=== PATIENT | female | born 1970 | race African-American/Black ===

== ENCOUNTER → 2019-10-20 08:04 | Outpatient (CLI) | payer OTHER, SELFPAY ==
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
== END ==
PROVIDERS: PCP Internal Medicine
DX: N63.21 Unspecified lump in the left breast, upper outer quadrant (principal)
CPT/HCPCS: 76642; 77062; 77066; G0279

== ENCOUNTER 2019-10-31 12:02 | Emergency (ER) | payer OTHER, SELFPAY ==
[2019-10-31 12:05] VITALS: BP 109/78; PULSE 86; RESP 14; TEMP 37.1; O2SAT 99
[2019-10-31 13:35] VITALS: BP 125/84; PULSE 83; RESP 16; TEMP 37.1; O2SAT 99
--- NOTE | 2019-10-31 14:28 | ED.BACK ---
HPI - Back Pain/Injury General Chief Complaint: Back Pain/Injury Stated Complaint: Back pain Time Seen by Provider: 10/31/19 13:16 Source: patient History of Present Illness HPI Narrative: 49 years old -Filipino female, morbidly obese complaining of lower back pain. Started 10 days ago. Patient denies any trauma, nausea, vomiting, fever, chills, urinary symptoms, or radiation of pain. Pain worse with certain movement, better with certain position. Patient had similar symptoms 5 years ago. MD elicited complaint: back pain Related Data Home Medications Medication Instructions Recorded Confirmed allopurinol 10/31/19 atenolol 10/31/19 ferrous sulfate 325 mg PO DAILY 10/31/19 levothyroxine 10/31/19 omeprazole 10/31/19 oxybutynin chloride mg PO 10/31/19 tramadol mg 10/31/19 triamterene-hydrochlorothiazid cap 10/31/19 warfarin 10/31/19 warfarin 10/31/19 Allergies Allergy/AdvReac Type Severity Reaction Status Date / Time NSAIDS (Non-Steroidal AdvReac Other Verified 10/31/19 13:46 Anti-Inflamma Review of Systems Review of Systems: Narrative: CONSTITUTIONAL: Denies fever, chills, or sweats. EYES: Denies visual changes, redness, or discharge. ENT: Denies rhinorrhea, congestion, sore throat, or otalgia. CARDIOVASCULAR: Denies chest pain, palpitations, or edema. RESPIRATORY: Denies cough or dyspnea. GASTROINTESTINAL: Denies abdominal pain, nausea, vomiting, or diarrhea. GENITOURINARY: Denies dysuria or hematuria. SKIN: Denies rash or itching. MUSCULOSKELETAL: Denies back pain, joint pain, or myalgia. NEUROLOGIC: Denies headache, numbness, or weakness. PSYCHIATRIC: Denies anxiety or depression. [facility], [facility] Family History Family History Mother Hypertension Family history of diabetes mellitus in first degree relative Family history of gallbladder disease Diabetes mellitus Sibling Hypertension Other Family history of cardiovascular disease Family history of malignant neoplasm Family history of malignant neoplasm of breast in first degree relative Social History Social History Smoking status: Never smoker Alcohol intake: never Gender identity (if verbalized by the patient): Female Exam Narrative: Exam Narrative: General appearance: Well-developed, well-nourished, patient sitting at the edge of the bed looks comfortable, morbidly obese Skin: Normal color Head: Normocephalic, nontraumatic Eyes: Clear conjunctiva ENT: Oropharynx normal, ears normal, nose normal Neck: Supple, nontender Chest and respiratory: Airway patent, no respiratory distress, no accessory muscle use Heart: Regular rate/rhythm Abdomen: Soft, nontender, no organomegaly, quiet bowel sounds Vascular: Normal peripheral pulses, normal capillary refill. Musculoskeletal: Slight limited range of motion across lumbar area, mild tenderness midline lumbar area, no bruises, no swelling or rash. Neurologic: Alert and oriented ?3, REBEAMER is normal as tested, no gross motor deficit Course Course Emergency Course: Improving Vital Signs Vital signs: Vital Signs Temperature 37.1 C 10/31/19 12:05 Pulse Rate 86 10/31/19 12:05 Respiratory Rate 14 10/31/19 12:05 Blood Pressure 109/78 10/31/19 12:05 Pulse Oximetry 99 10/31/19 12:05 Temperature 37.1 C 10/31/19 13:35 Pulse Rate 83 10/31/19 13:35 Respiratory Rate 16 10/31/19 13:35 Blood Pressure 125/84 10/31/19 13:35 Pulse Oximetry 99 10/31/19 13:35 MDM - Back Pain/Injury MDM Narrative Medical decision making narrative: Muscular strain/sprain is my concern. No
[2019-10-31] MEDS: ONDANSETRON HCL ODT 4 MG TABLET PO (15:56)
[2019-10-31] MEDS: diazePAM 5 MG TABLET PO (15:58)
--- NOTE | 2019-10-31 16:23 | PC.NURSE ---
Patient up to the bathroom to provide urine sample.
[2019-10-31 16:52] LABS: Add Urine Microscopic? YES; Appearance Urine Clear (Clear); Bacteria Urine Trace /hpf; Bilirubin Urine Negative (Negative); Blood Urine Negative (Negative); Color Urine Yellow (Yellow); Glucose Urine UA Negative (Negative); Ketones Urine Negative (Negative); Leukocyte Esterase Ur Trace LEU/UL (Negative); Mucus Urine Few /lpf; Nitrate Urine Negative (Negative); Protein Urine Negative (Negative); RBC Urine 0-2 /hpf (0-2); Squamous Epithelial Cell Urine Many /hpf (Few); Urobilinogen Urine Negative mg/dL (<2.0); WBC Urine 0-3 /hpf
[2019-10-31 18:25] VITALS: BP 138/51; PULSE 79; RESP 18; TEMP 36.2; O2SAT 99
== END 2019-10-31 18:25 | disposition home or self-care (01) ==
PROVIDERS: Emergency Provider Emergency Medicine; PCP Internal Medicine
DX: M54.5 Low back pain (principal); E66.01 Morbid (severe) obesity due to excess calories; Z68.44 Body mass index [BMI] 60.0-69.9, adult; Z79.01 Long term (current) use of anticoagulants; Z86.711 Personal history of pulmonary embolism; K21.9 Gastro-esophageal reflux disease without esophagitis; M10.9 Gout, unspecified; E03.9 Hypothyroidism, unspecified
CPT/HCPCS: 81001; 96372; 99283; A9270; J1170

== ENCOUNTER 2020-05-23 09:15 | Outpatient (CLI) | payer OTHER, SELFPAY ==
--- NOTE | ~2020-05-23 | XR_ITS ---
XR lumbar spine 6V w bending 05/23/2020 09:33 Indication: Low back pain Procedure: 7 views lumbar spine Comparison: No prior studies for comparison. Findings: There is disc narrowing at L5-S1. There is lower lumbar facet arthritis. No fracture or tra umatic malalignment. No evidence for spondylolisthesis. There is side plate and screws transfixing th e right acetabulum. Impression: 1: Mild lumbar spondylosis. Reviewed, dictated and finalized at location B. OM [employer] Impression: 1: Mild lumbar spondylosis.
== END 2020-05-23 09:16 | disposition home or self-care (01) ==
PROVIDERS: PCP Physician Assistant; Visit Provider Physician Assistant
DX: M54.5 Low back pain (principal); M47.816 Spondylosis without myelopathy or radiculopathy, lumbar region
CPT/HCPCS: 72114

== ENCOUNTER 2020-05-24 09:13 | Outpatient (CLI) | payer OTHER, SELFPAY ==
--- NOTE | 2020-05-24 09:40 | EST_ITS ---
Patient Info Name: Aleisha Chew Age: 50 years : 1970 Gender: Female Ht: 63 in Wt: 360 lbs BSA: 2.81 m2 Exam Date: 05/24/2020 9:56 AM Exam Location: [facility] Stress Patient Status: Outpatient Admit Date: 05/24/2020 Staff Ordering Physician: Bob Coekr PA-C Attending Provider: Bob Coker PA-C Exercise Technologist: Ventura Alexis RDCS, RT Exercise Physician: Brennon Long DO Exam Type: CA stress test treadmill Study Info A treadmill exercise stress test was performed. Summary 1. 1. Negative Melecio exercise stress test for ischemic ST changes by ECG criteria. 2. 2. Poor functional capacity, achieving 4.7 METs of workload. 3. 3. Rapid HR response to exercise. 4. 4. Appropriate HR recovery at 1 minute post exercise. 5. 5. No imaging with stress testing. 6. 6. Patient informed of the above results. Protocol: Melecio Stress ECG Details Stage: REST Duration (min): 3 min : 16 sec Speed (mph): 0.0 Grade (%): 0 HR (bpm): 70 SBP (mmHg): 97 DBP (mmHg): 61 METS: --- Stage: REST Duration (min): 11 min : 6 sec Speed (mph): 0.0 Grade (%): 0 HR (bpm): 91 SBP (mmHg): 109 DBP (mmHg): 63 METS: --- Stage: STAGE 1 Duration (min): 1 min : 0 sec Speed (mph): 1.7 Grade (%): 10 HR (bpm): 122 SBP (mmHg): 109 DBP (mmHg): 63 METS: --- Stage: STAGE 1 Duration (min): 2 min : 0 sec Speed (mph): 1.7 Grade (%): 10 HR (bpm): 140 SBP (mmHg): 109 DBP (mmHg): 63 METS: --- Stage: STAGE 1 Duration (min): 3 min : 0 sec Speed (mph): 2.5 Grade (%): 12 HR (bpm): 151 SBP (mmHg): 157 DBP (mmHg): 88 METS: --- Stage: RECOVERY Duration (min): 1 min : 0 sec Speed (mph): 0.0 Grade (%): 0 HR (bpm): 142 SBP (mmHg): 157 DBP (mmHg): 88 METS: --- Stage: RECOVERY Duration (min): 2 min : 0 sec Speed (mph): 0.0 Grade (%): 0 HR (bpm): 121 SBP (mmHg): 157 DBP (mmHg): 88 METS: --- Stage: RECOVERY Duration (min): 3 min : 0 sec Speed (mph): 0.0 Grade (%): 0 HR (bpm): 108 SBP (mmHg): 162 DBP (mmHg): 82 METS: --- Stage: RECOVERY Duration (min): 3 min : 16 sec Speed (mph): 0.0 Grade (%): 0 HR (bpm): 107 SBP (mmHg): 162 DBP (mmHg): 82 METS: --- Rest HR: 91 bpm Peak HR: 151 bpm Rest Sys BP: 109 mmHg Peak Sys BP: 162 mmHg Max Pred HR: 171 bpm % Max Pred HR: 88 % Target HR: 145 bpm Max RPP: 24,462 bpm*mmHg Edward Score: -3 Termination Reason: Reached target heart rate or workload Cardiac Symptoms: Shortness of breath Max ST Seg Deviation: 1.20 mm Total Time: 3 min : 0 sec Rest Dominguez BP: 63 mmHg Peak Dominguez BP: 82 mmHg Angina Score: None Total METS: 4.7 Resting ECG Sinus rhythm, borderline T wave in inferior leads. Stress ECG No ST changes. Arrhythmias None. Report Signatures
== END 2020-05-24 09:14 | disposition home or self-care (01) ==
PROVIDERS: PCP Physician Assistant; Visit Provider Physician Assistant
DX: R06.02 Shortness of breath (principal)
CPT/HCPCS: 93017

== ENCOUNTER 2020-11-22 17:52 | Emergency (ER) | payer OTHER, SELFPAY ==
[2020-11-22] VITALS (8 sets, daily range): BP systolic 118–147; BP diastolic 72–89; PULSE 93–110; RESP 15–22; TEMP 38.7–38.9; O2SAT 98–100
--- NOTE | ~2020-11-22 | XR_ITS ---
EXAMINATION: XR chest 1V portable DATE: 11/22/2020 18:12 INDICATION: Positive presenting with cough, shortness of breath, weakness and fever. TECHNIQUE: frontal view of the chest was obtained. COMPARISON: Chest radiograph dated 11/09/2018 FINDINGS: Mild cardiomegaly with pulmonary vascular congestion. Mild perihilar bronchial wall thickening no foc al airspace opacities, pleural effusion or pneumothorax. IMPRESSION: 1. Perihilar bronchial wall thickening without focal airspace opacities which could be due to mild pu lmonary edema or bronchitis. 2. Cardiomegaly with pulmonary vascular congestion. Reviewed, dictated and finalized at location A. IMPRESSION: 1. Perihilar bronchial wall thickening without focal airspace opacities which c ould be due to mild pulmonary edema or bronchitis. 2. Cardiomegaly with pulmonary vascular congestion.
--- NOTE | 2020-11-22 17:59 | ECG_ITS ---
Measurements Intervals [place] Rate: 104 P: 47 ME: 159 QRS: 21 QRSD: 98 T: 5 QT: 332 QTc: 438 Interpretive Statements SINUS TACHYCARDIA BORDERLINE R WAVE PROGRESSION, ANTERIOR LEADS BORDERLINE T WAVE ABNORMALITY- ANT/INF LEADS BASELINE ARTIFACT- II, III, AVL, AVF BORDERLINE ECG Electronically Signed On 11-22-2020 20:05:26 CDT by Brennon Long D.O.
--- NOTE | 2020-11-22 18:07 | ED.SOB ---
HPI - SOB/Dyspnea General Chief Complaint: Shortness of Breath/Dyspnea Stated Complaint: SOB,COVID + Time Seen by Provider: 11/22/20 18:05 Source: RN notes reviewed History of Present Illness HPI Narrative: Patient presents to emergency department from home via EMS for shortness of breath. Patient states that she diagnosed with Covid yesterday with positive test states symptoms again approximately 4 days ago. She states that today she felt more short of breath at home called EMS for further evaluation when EMS arrived the patient had oxygen saturation in the mid 90s. Patient denies any chest pain she states she has been running a fever at home and last took Tylenol at approximately 1:30 PM she denies any abdominal pain nausea or vomiting states she is on Eliquis for history of pulmonary embolisms has not missed any doses. Patient states she did not receive the Covid vaccinations Related Data Home Medications Medication Instructions Recorded Confirmed diclofenac sodium 1 % topical gel 2 g TOPICAL QID 02/22/20 05/19/20 ergocalciferol (vitamin D2) 1,250 1,250 mcg PO MONTHLY 02/22/20 05/19/20 mcg (50,000 unit) capsule Allergies Allergy/AdvReac Type Severity Reaction Status Date / Time NSAIDS (Non-Steroidal AdvReac Other Verified 05/18/20 10:31 Anti-Inflamma Review of Systems Review of Systems: Gen.: Reports fever Eyes: Denies eye pain or visual change ENT: Denies congestion Respiratory: See HPI CV: Denies chest pain or palpitations GI: Denies abdominal pain nausea, emesis or diarrhea Musculoskeletal: Denies back pain or muscle pain Neuro: Denies numbness, tingling, weakness or focal weakness Skin: Denies rash Except as documented, all other systems reviewed and negative [facility] Past Medical History Medical History Anemia Arthritis Gout Hip fracture Hypertension Pulmonary embolism SOB (shortness of breath) Thyroid disease Urinary incontinence Surgical History Surgical History H/O tubal ligation History of thyroid surgery Family History Family History Mother Hypertension Family history of diabetes mellitus in first degree relative Family history of gallbladder disease Diabetes mellitus Sibling Hypertension Other Family history of cardiovascular disease Family history of malignant neoplasm Family history of malignant neoplasm of breast in first degree relative Social History Social History Smoking status: Never smoker Alcohol intake: never Gender identity (if verbalized by the patient): Female Exam Narrative: APPEARANCE: No acute distress, nontoxic, resting in bed EYES: EOMI HEENT: Normocephalic, atraumatic, OMM RESPIRATORY: No respiratory distress Clear to auscultation bilaterally with no rhonchi wheezing or rales. CARDIOVASCULAR: Regular rate and rhythm without murmurs rubs or gallops. ABDOMINAL: Soft, nontender, nondistended, no rebound or guarding MUSCULOSKELETAl: Moves all extremities. No clubbing, cyanosis or edema. NEURO: Awake and alert. Following commands, speech normal, no focal deficits SKIN:: Warm, dry. No rashes lesions or abrasions PSYCHIATRIC: Normal affect/mood, Course Course Emergency Course: Patient is remained on room air emergency department with O2 saturations of 98 200% she had a walking pulse ox in the room with no desaturation fevers improving Discussed with patient results of workup and diagnosis. Discussed need for follow-up with primary care, proper use of medication, and reasons to return to the emergency department. Patient understands and agrees to current treatment plan Vital Signs Vital signs: Vital Signs Temperature 101.6 F H 11/22/20 17:53 Pulse Rate 110 H 11/22/20 17:53 Respiratory Rate 18 11/22/20 17:53 Blood Pre
[2020-11-22] MEDS: SODIUM CHLORIDE 0.9% IV 1,000 ML 999 ML IV CONT (18:43)
[2020-11-22 19:28] LABS: D Dimer 0.47 ug/mL (<0.48)
[2020-11-22 19:29] LABS: Lactic Acid Reflex 1.1 mmol/L (0.7-2.1)
[2020-11-22 19:30] LABS: Alanine Aminotransferase 18 U/L (4-35); Albumin Level 4.3 g/dL (3.5-5.1); Alkaline Phosphatase 58 U/L (38-126); Anion Gap 11 mmol/L (8-16); Aspartate Amino Transferase 27 U/L (14-36); Bilirubin,Total 0.2 mg/dL (0.2-1.3); Blood Urea Nitrogen 13 mg/dL (7-17); Calcium 8.7 mg/dL (8.4-10.2); Carbon Dioxide 20 mmol/L (22-30); Chloride 101 mmol/L (98-107); Estimated CRCL calculation 94 ml/min; Estimated Glomerular Filt Rate > 60; Glucose 99 mg/dL (65-110); Potassium 4.1 mmol/L (3.4-5.0); Sodium 132 mmol/L (137-145)
[2020-11-22 19:35] LABS: Lactate Dehydrogenase 459 U/L (313-618)
[2020-11-22 19:37] LABS: Basophils Percent Auto 0.5 % (0.2-1.2); Hematocrit 30.5 % (37.0-47.0); Hemoglobin 9.1 g/dL (12.0-15.0); Immature Granulocyte Absolute 0.01 K/mm3 (0.00-0.031); Immature Granulocyte Percent A 0.3 % (0-0.5); Lymphocytes Absolute Auto 0.88 K/mm3 (0.9-3.2); Lymphocytes Percent Auto 23.6 % (18.3-44.2); Mean Corpuscular HGB Conc 29.8 g/dl (32-36); Mean Corpuscular Hemoglobin 24.7 pg (26-34); Mean Corpuscular Volume 82.9 fl (80-100); Mean Platelet Volume 10.5 fl (7.4-10.4); Monocytes Absolute Auto 0.4 K/mm3 (0.1-0.6); Monocytes Percent Auto 10.5 % (2.6-8.5); Neutrophils Absolute Auto 2.4 K/mm3 (1.3-6.7); Neutrophils Percent Auto 65.1 % (45.5-73.1); Platelet Count Result 183 k/mm3 (150-375); Red Blood Count 3.68 M/mm3 (4.2-5.4); Red Cell Distribution Width 15.7 % (11.5-14.5); White Blood Count 3.7 K/mm3 (4.5-10.0)
[2020-11-22] MEDS: ACETAMINOPHEN 500 MG TABLET 1000 MG PO (19:39)
[2020-11-22 19:42] LABS: CRP 1.7 mg/dL (<1.0)
--- NOTE | 2020-11-22 19:47 | PC.NURSE ---
pt's mother called for an update on the pt. asked pt if it was okay if I spoke w/ her. pt states that was okay.
[2020-11-22 20:03] LABS: Anisocytosis 1+ (NORMAL); Platelet Estimate Adequate (Adequate)
[2020-11-22 20:04] LABS: Ovalocytes 1+ (NORMAL)
--- NOTE | 2020-11-22 20:47 | PC.NURSE ---
fever was 100.7 at 20:46 -- ambulated pt in room, pulse ox was 96-97, pulse was 118-121
[2020-11-22] MEDS: ALBUTEROL SULFATE (*SP) INHALER 2 PUFF INHALATION (21:00)
--- NOTE | 2020-11-22 21:01 | PCRCNOTE ---
Albuterol MDI instructed via spacer. Pt has good understanding of usage and technique.
== END 2020-11-22 21:37 | disposition home or self-care (01) ==
PROVIDERS: Family Medicine; Emergency Provider Emergency Medicine; PCP Physician Assistant
DX: U07.1 COVID-19 (principal); D64.9 Anemia, unspecified; M19.90 Unspecified osteoarthritis, unspecified site; M10.9 Gout, unspecified; I10 Essential (primary) hypertension; Z86.711 Personal history of pulmonary embolism; E07.9 Disorder of thyroid, unspecified; Z79.01 Long term (current) use of anticoagulants; R00.0 Tachycardia, unspecified; R94.31 Abnormal electrocardiogram [ECG] [EKG]; I51.7 Cardiomegaly; R09.89 Other specified symptoms and signs involving the circulatory and respiratory systems; R91.8 Other nonspecific abnormal finding of lung field
CPT/HCPCS: 36415; 71045; 80048; 80076; 82728; 83605; 83615; 85025; 85380; 86140; 87040; 93005; 96360; 99284; A9270; J7030